=== PATIENT | male | born 1955 | race Caucasian/White ===

== ENCOUNTER 2018-04-18 06:29 | Day surgery (SDC) | payer OTHER ==
[~2018-04-18] VITALS: Ht 170.2 cm; Wt 73.1 kg
[2018-04-18 08:29] VITALS: Ht 170.2 cm; Wt 73.1 kg
[2018-04-18] MEDS ORDERED: ATORVASTATIN (08:32)
[2018-04-18 09:02] VITALS: BP 125/69; PULSE 62; RESP 18
[2018-04-18] MEDS ORDERED: FENTAnyl 50 MCG/ML VIAL ONE (09:40)
[2018-04-18] MEDS ORDERED: MIDAZOLAM 1 MG/ML 2 ML INJ ONE ×2 (09:40)
[2018-04-18 10:00] VITALS: BP 103/62; RESP 16
== END 2018-04-18 11:45 | disposition home or self-care (01) ==
LOC: GIL 06:29
PROVIDERS: ATTEND Internal Medicine Gastroenterology
DX: Z12.11 Encounter for screening for malignant neoplasm of colon (principal); K64.8 Other hemorrhoids; D12.5 Benign neoplasm of sigmoid colon
CPT/HCPCS: 45380; 88305; J2250; J3010